=== PATIENT | male | born 1935 | race Caucasian/White ===

== ENCOUNTER 2018-03-11 04:43 | Observation (INO) | payer MEDICARE ==
[~2018-03-11] VITALS: Ht 172.7 cm; Wt 69.1 kg
[~2018-03-11 04:43] MED LIST: ACEPHEN325 MG PO; ALBUTEROL SUL0.083 % IN; ALLERGY MED25 MG OR; ASPIRINCHW 81MG PO; ATORVASTATIN CA40 MG PO; ATROVENT HFA17 MCG IN; AUGMENTIN875TAB OR; BABY ASPIRIN81 MG PO; BROVANA15 MCG IN; COUGH CONT100 MG/5 M OR; FISH OIL1000 MG PO; FLUARIX QUADRIV1 IN1 IM; FLUZONE SPLT1 M1 IM; NABUMETONE500 MG PO; OMEPRAZOLE20 MG PO; OXAPROZIN600 MG OR; OXY1; OXYGEN; PRAVASTATIN SOD40 MG OR; PRILOSEC20 MG PO; PROVENTIL HFA IN; PULMICORT0.5MG/2ML IN; SYMBICORT1 AE1 IN; TAMSULOSIN HCL0.4 MG PO; VITAMIN B 12250 MCG OR; ZYLOPRIM300 MG PO
[2018-03-11 05:17] LABS: HEMOGLOBIN 14.1 g/dl (14.0-18.0); IMMATURE GRANULOCYTES 0.4 % (0.0-1.0); MEAN CORPUSCULAR HGB 32.6 pG CALC (26.0-32.0); MEAN CORPUSCULAR HGB CONC 33.6 g/L CALC (32.0-36.0); NEUT# 10.26 thou/uL (1.82-7.42); RED BLOOD COUNT 4.33 mill/uL (4.70-6.10); RED CELL DISTRI WIDTH 12.7 % (11.5-15.5)
[2018-03-11 05:28] LABS: INFLUENZA A NONE DETECTED (NONE DETECT); INFLUENZA B NONE DETECTED (NONE DETECT)
[2018-03-11 05:31] LABS: ALBUMIN 3.9 g/dL (3.2-5.0); ALKALINE PHOSPHATASE 93 u/l (38-126); ANION GAP 17 (6-22 (CALC)); BUN 24 mg/dL (8-23); BUN/CREATININE RATIO 15 (12-20 (CALC)); CARBON DIOXIDE 25 mmol/l (22-30); CHLORIDE 100 mmol/l (95-108); CREATININE 1.6 mg/dL (0.7-1.3); GFR 42 ML/MIN (>=60 (CALC)); GFR FOR AFR.AMER. 50 ML/MIN (>=60 (CALC)); SGOT/AST 19 u/l (19-48); SGPT/ALT 27 u/l (11-66); SODIUM 138 mmol/l (137-146); TOTAL PROTEIN 7.3 g/dL (6.3-8.2)
[2018-03-11 05:43] LABS: MYOGLOBIN 224 ng/mL (0 - 121)
[2018-03-11] MEDS ORDERED: ALBUTEROL SUL0.083 % IN (06:04)
[2018-03-11 06:28] VITALS: BP 97/43
[2018-03-11 11:35] VITALS: BP 184/82
[2018-03-11 11:36] VITALS: BP 103/62
[2018-03-11 14:53] VITALS: BP 102/57
[2018-03-11 19:10] VITALS: BP 121/74
[2018-03-11 19:42] LABS: URINE BILIRUBIN - DIPSTICK NEGATIVE (NEGATIVE); URINE BLOOD DIPSTICK TRACE-INTACT (NEGATIVE); URINE COLOR YELLOW; URINE GLUCOSE - DIPSTICK 100 mg/dL (NEGATIVE); URINE KETONE NEGATIVE (NEGATIVE); URINE LEUK ESTERASE NEGATIVE (NEGATIVE); URINE NITRITE - DIPSTICK NEGATIVE (Negative); URINE PH 5.5 (4.5-8.0); URINE PROTEIN - DIPSTICK NEGATIVE (NEG-TRACE); URINE UROBILINOGEN - DIPSTICK 0.2 E.U./dL (0.2)
[2018-03-11 19:46] LABS: URINE CLARITY CLEAR
[2018-03-12 00:38] VITALS: BP 143/78
[2018-03-12 04:13] VITALS: BP 99/57
[2018-03-12 05:19] LABS: HEMATOCRIT 37.6 % (39.0-50.0); HEMOGLOBIN 12.7 g/dl (14.0-18.0); IMMATURE GRANULOCYTES 0.7 % (0.0-1.0); MEAN CELL VOLUME 95.2 fL CALC (80.0-100.0); MEAN CORPUSCULAR HGB 32.2 pG CALC (26.0-32.0); MEAN CORPUSCULAR HGB CONC 33.8 g/L CALC (32.0-36.0); NEUT# 12.65 thou/uL (1.82-7.42); RED BLOOD COUNT 3.95 mill/uL (4.70-6.10); RED CELL DISTRI WIDTH 12.8 % (11.5-15.5)
[2018-03-12 05:33] LABS: CREATININE 1.4 mg/dL (0.7-1.3); POTASSIUM 4.6 mmol/l (3.5-5.1)
[2018-03-12 07:54] VITALS: BP 106/62
[2018-03-12 11:20] VITALS: BP 120/63
[2018-03-12 16:04] VITALS: BP 100/55
[2018-03-12 19:30] VITALS: BP 120/58
[2018-03-13 00:10] VITALS: BP 127/70
[2018-03-13 04:15] VITALS: BP 179/81
[2018-03-13 05:19] LABS: HEMATOCRIT 37.7 % (39.0-50.0); HEMOGLOBIN 12.9 g/dl (14.0-18.0); IMMATURE GRANULOCYTES 1.2 % (0.0-1.0); MEAN CELL VOLUME 95.2 fL CALC (80.0-100.0); MEAN CORPUSCULAR HGB 32.6 pG CALC (26.0-32.0); MEAN CORPUSCULAR HGB CONC 34.2 g/L CALC (32.0-36.0); NEUT# 13.75 thou/uL (1.82-7.42); RED BLOOD COUNT 3.96 mill/uL (4.70-6.10); RED CELL DISTRI WIDTH 12.7 % (11.5-15.5)
[2018-03-13 05:33] LABS: CREATININE 1.4 mg/dL (0.7-1.3); MAGNESIUM 1.7 mg/dL (1.6-2.3); POTASSIUM 4.3 mmol/l (3.5-5.1)
[2018-03-13 08:30] VITALS: BP 152/65
[2018-03-13 12:15] VITALS: BP 129/56
[2018-03-13] MEDS ORDERED: ZITHROMAX500 MG PO (12:23)
[2018-03-13] MEDS ORDERED: MEDDOSEPAK PO (12:23)
== END 2018-03-13 13:10 | disposition home or self-care (01) ==
LOC: ED 04:43 → ED-I 05:05 → ED 05:55 → MS2 05:56
PROVIDERS: Emergency Medicine; Nurse Practitioner Family; ADMIT Internal Medicine; ATTEND Internal Medicine
DX: J44.1 Chronic obstructive pulmonary disease with (acute) exacerbation (principal); J44.0 Chronic obstructive pulmonary disease with (acute) lower respiratory infection; J20.9 Acute bronchitis, unspecified; J84.10 Pulmonary fibrosis, unspecified; F17.210 Nicotine dependence, cigarettes, uncomplicated; N18.3 Chronic kidney disease, stage 3 (moderate); R41.3 Other amnesia; Z99.81 Dependence on supplemental oxygen; R06.02 Shortness of breath